=== PATIENT | female | born 1980 | race Caucasian/White ===

== ENCOUNTER 2020-08-16 15:37 | Emergency (ER) | payer SELFPAY ==
[2020-08-16 15:38] VITALS: BP 133/96; PULSE 98; RESP 16; TEMP 36.1; O2SAT 100; BMI 21.8
[2020-08-16 15:49] VITALS: O2SAT 100
--- NOTE | 2020-08-16 15:55 | ED.VIS.GEN ---
History of Present Illness Chief Complaint: Fall Informant: Patient Narrative: 40-year-old female from [place] currently visiting her family states that she tripped and twisted her left ankle catching her right ribs on the side of the wall. She did not hit her head or lose consciousness. She not short of breath but does have right-sided rib pain. She states she can ambulate on her left ankle but it hurts. She had a little bit of swelling. Numbness or tingling. Past Medical History - Allergies and Home Meds Allergies/Adverse Reactions: Allergies No Known Allergies Allergy (Verified 08/16/20 15:38) Primary Care Physician: Jose Carlos Nassar, [STAFF PHYSICIAN] - NOT,DEFINED [NON-STAFF] - Past Medical History: - - PTSD, bipolar disorder, fibromyalgia Surgical History: noncontributory Smoking Status: Current every day smoker Alcohol: None Drugs: None Review of Systems General: Denies: Chills, Fever, Sweats Eyes: Denies: Visual changes - bilaterally, Diplopia ENT: Denies: Rhinorrhea, Sore throat Cardiovascular: Denies: Chest pain, Palpitations Respiratory: Reports: - - Right rib pain. Denies: Dyspnea, Cough, Dyspnea on exertion Genitourinary: Denies: Dysuria, Hematuria, Frequency Musculoskeletal: Reports: Extremity Pain - Left ankle pain and swelling. Denies: Myalgias Skin: Denies: Rash, Abscess, Abrasions Neurological: Denies: Headache, Weakness, Parasthesia, Numbness Psych: Denies: Depression, Anxiety Physical Exam Vital Signs/Narrative: Vital Signs Temp Pulse Resp BP Pulse Ox 08/16/20 15:49 100 08/16/20 15:38 97.0 F L 98 16 133/96 H 100 Inital Vital Signs reviewed: Yes General: Well nourished, No Acute Distress Head: Normocephalic, Atraumatic Eyes: Perrl ENT: Moist mucous membranes Cardiovascular: Regular rate, Regular rhythm, No murmurs Respiratory: No distress, CTA bilaterally, Chest tenderness - Tenderness to palpation of the right side of the thorax in the midaxillary line without bruising, crepitus, bony deformity Back: Nontender, Normal Inspection Extremities: Tenderness - Tenderness to palpation of the lateral malleolus of the left ankle with slight swelling. There is no bruising. Pedal pulses 2+. Sensation is intact., Edema Skin: Normal color, No rash Neurological: Alert, Oriented x3 Psychological: Normal affect, Normal Mood Diagnostic/Tx/Re-eval - Medical Decision Making Patient presents for evaluation after mechanical fall. She states she hurt her right ribs and her left ankle. Right rib series is interpreted by myself and the radiologist shows no acute process or bony injury. Left ankle x-ray is interpreted by myself and the radiologist shows a distal fibular fracture. I believe this fracture is amenable to a walking boot. Patient was given crutches and will be given [place] for pain at home. Patient is from out of town but will be here for 2 and half weeks she was given follow-up with Dr. King if she wishes to see somebody in town. Patient discharged home in stable condition. Impression: 1. Mechanical fall 2. Right rib contusion 3. Fibular fracture left ankle ED Disposition - Plan for ED Patient: Disposition: Home or Assisted Living Instructions: ED Ankle Fracture, ED Mechanical Fall, ED Rib Contusion or Minor Fracture Prescriptions: Hydrocodone/Acetaminophen [[place] 5-325 Tablet] 1 ea PO Q6H PRN PRN 3 Days #12 tab PRN Reason: pain Prescription Printed Referrals: NOT,DEFINED [NON-STAFF] - Jose Carlos Nassar DO [STAFF PHYSICIAN] -
--- NOTE | 2020-08-16 15:56 | RAD_ITS ---
STUDY: X-RAY - UNILATERAL RIBS ( RIGHT ) WITH CHEST REASON FOR EXAM: Female, 40 years old. Fall, right rib pain TECHNIQUE - RIBS: 2 view(s) of the ribs. TECHNIQUE - CHEST: 1 COMPARISON: None. FINDINGS - RIBS: Normal visualized ribs without a demonstrated fracture. FINDINGS - CHEST: The lungs are clear and expanded. There is no demonstrated pleural abnormality. Normal size heart. Normal mediastinum and darrin. Normal visualized pulmonary arteries. Normal visualized aortic arch and descending thoracic aorta. Normal visualized thoracic spine. Normal visualized ribs, clavicles, and shoulders. There is no demonstrated abnormality of the visualized soft tissue structures of the upper abdomen. RAD/Ribs Uni Min 3V w/PA Chest IMPRESSION: RIBS: Normal x-ray examination of the ribs. CHEST: Normal x-ray examination of the chest. Electronically Signed: Gordo Bar, at 17:31 EST Tel , Service support ,
[2020-08-16] MEDS: traMADol 50 MG Tablet PO (16:00)
--- NOTE | 2020-08-16 16:05 | RAD_ITS ---
STUDY: X-RAY - LEFT ANKLE REASON FOR EXAM: Female, 40 years old. Fall, left ankle pain TECHNIQUE: 3 view(s) of the ankle. COMPARISON: None. FINDINGS: Acute oblique nondisplaced fracture of the distal fibula/lateral malleolus with mild associated soft tissue swelling and likely narrowing of the lateral ankle mortise. The remainder the visualized osseous structures are intact. RAD/Ankle min 3 Views IMPRESSION: Distal fibular fracture as above. Electronically Signed: Gordo Bar, at 16:54 EST Tel , Service support ,
[2020-08-16] MEDS: Lidocaine 5% Patch 1 PATCH TOPICAL (16:15)
[2020-08-16] MEDS: Ketorolac 15 MG/ML Vial IM (17:00)
[2020-08-16 17:53] VITALS: RESP 17
== END 2020-08-16 17:53 | disposition home or self-care (01) ==
PROVIDERS: Emergency Provider Student in an Organized Health Care Education/Training Program
DX: S20.211A Contusion of right front wall of thorax, initial encounter (principal); S82.832A Other fracture of upper and lower end of left fibula, initial encounter for closed fracture; W01.10XA Fall on same level from slipping, tripping and stumbling with subsequent striking against unspecified object, initial encounter; Y93.9 Activity, unspecified; Y92.89 Other specified places as the place of occurrence of the external cause; Y99.9 Unspecified external cause status; F17.200 Nicotine dependence, unspecified, uncomplicated; F31.9 Bipolar disorder, unspecified; M79.7 Fibromyalgia
CPT/HCPCS: 71101; 73610; 99284

== ENCOUNTER 2020-08-22 00:50 | Emergency (ER) | payer SELFPAY ==
[2020-08-22 00:51] VITALS: BP 128/89; PULSE 97; RESP 16; TEMP 37.2; O2SAT 100; BMI 23.1
--- NOTE | 2020-08-22 00:59 | RAD_ITS ---
STUDY: X-RAY - RIGHT WRIST REASON FOR EXAM: Female, 40 years old. FELL WHILE USING CRUTCHES -- C/O SEVERE PAIN IN RT ARM -- BEST IMAGES POSSIBLE, PATIENT UNABLE TO DO ALL VIEWS DUE TO PAIN TECHNIQUE: 3 view(s) of the wrist were obtained. COMPARISON: None. FINDINGS: Normal visualized distal radius and ulna. Normal radiocarpal articulation. Normal distal radioulnar articulation. Normal carpal bones. Normal carpal articulations. Normal carpometacarpal articulation of the thumb. Normal second through fifth carpometacarpal articulations. Normal visualized metacarpal bones. The soft tissue structures are unremarkable. RAD/Wrist 2 Views IMPRESSION: Normal x-ray examination of the wrist. Electronically Signed: Felix Moseley MD at 2:52 EST , Service support ,
--- NOTE | 2020-08-22 00:59 | RAD_ITS ---
STUDY: X-RAY - RIGHT ELBOW REASON FOR EXAM: Female, 40 years old. FELL WHILE USING CRUTCHES -- C/O SEVERE PAIN IN RT ARM -- BEST IMAGES POSSIBLE, PATIENT UNABLE TO DO ALL VIEWS DUE TO PAIN TECHNIQUE: 3 view(s) of the elbow. COMPARISON: None. FINDINGS: There is a fracture of the head of the radius. The ulna is intact. Normal radiocapitellar and ulnotrochlear articulations. There is a small joint effusion. RAD/Elbow 2 Views IMPRESSION: Radial head fracture. Electronically Signed: Felix Moseley MD at 2:50 EST , Service support ,
--- NOTE | 2020-08-22 00:59 | RAD_ITS ---
STUDY: X-RAY - RIGHT SHOULDER REASON FOR EXAM: Female, 40 years old. FELL WHILE USING CRUTCHES -- C/O SEVERE PAIN IN RT ARM -- BEST IMAGES POSSIBLE, PATIENT UNABLE TO DO ALL VIEWS DUE TO PAIN TECHNIQUE: 2 view(s) of the shoulder. COMPARISON: None. FINDINGS: Normal glenohumeral articulation. Normal acromioclavicular joint. Normal acromion. Normal humeral head and visualized proximal humerus. The soft tissue structures are unremarkable. Normal visualized pulmonary apex. RAD/Shoulder min 2 Views IMPRESSION: Normal x-ray examination of the shoulder. Electronically Signed: Felix Moseley MD at 2:51 EST , Service support ,
--- NOTE | 2020-08-22 01:01 | ED.VISSUMM ---
- ER Visit Summary Date of Service: 08/22/20 Chief Complaint: Fall History of Present Illness: The patient is a 40 F presenting after fall. Patient states she lost balance. She recently fell and broke her left fibula. She states she was trying to protect that leg and fell onto her right arm. She did not hit her head or lose consciousness. She is from [place] and is scheduled to go home tomorrow. Physical Examination: Vitals are stable. Patient is afebrile. Alert no acute distress. HEENT exam is unremarkable. Neck is nontender Lungs are clear and equal bilaterally. Heart is regular rate and rhythm. Abdomen is soft nontender nondistended. Extremities diffuse tenderness right shoulder and elbow. Normal pulses. Left lower extremity Aircast in place Skin is warm and dry. Remainder of exam is unremarkable. Emergency Department Course and Treatment: Patient given morphine, Zofran IV. X-ray of right shoulder, elbow, wrist were obtained. X-rays were interpreted by myself and radiology. She has a right radial head fracture. She was put in a sling. She was given Valium for muscle spasm. She is given prescription for Percocet. She is from [place] and is traveling home today. She will follow-up with orthopedics. Disposition: Discharge home Impression: Right radial head fracture status post fall This note was generated with [employer] dictation software. It may contain incorrect words, spelling, and punctuation that were not noted in review of the chart prior to signing ED Disposition - Plan for ED Patient: Referrals: [facility],Out of [NON-STAFF] -
[2020-08-22] MEDS: Morphine 4 MG/ML Syringe IV ×2 (01:51→02:22)
[2020-08-22] MEDS: Ondansetron 4 MG/2 ML Vial IV (01:52)
[2020-08-22] MEDS: diazePAM 5 MG Tablet PO (03:03)
--- NOTE | 2020-08-22 03:05 | ED.DEP ---
ED Disposition - Plan for ED Patient: Instructions: ED Radial Head Fracture Prescriptions: Oxycodone HCl/Acetaminophen [Percocet 5/325] 1 tab PO Q6H PRN PRN 3 Days #12 tab PRN Reason: Pain Prescription Printed Referrals: [facility],Out of [NON-STAFF] -
[2020-08-22 03:58] VITALS: BP 135/78; PULSE 88; RESP 18; O2SAT 97
== END 2020-08-22 03:59 | disposition home or self-care (01) ==
LOC: ED 01:53
PROVIDERS: Emergency Provider Emergency Medicine
DX: S52.121A Displaced fracture of head of right radius, initial encounter for closed fracture (principal); W19.XXXA Unspecified fall, initial encounter
CPT/HCPCS: 73030; 73070; 73100; 96374; 96375; 96376; 99284; A4216; J2405